=== PATIENT | female | born 1935 | race Caucasian/White ===

== ENCOUNTER → 2016-07-02 | Outpatient (CLI) | payer MEDICARE, BC ==
[~2016-07-02] MED LIST: AMIO100T4 PO; AMLO2.5T PO; ASPI81TA2 PO; BENZ-16 PO; CALC-139 PO; CYAN100099 PO; FERR-70 PO; FURO20TA4 PO; HYDR-3989 PO; LEVO88TA7 PO; LORA1TAB3 PO; MELA1TAB29 PO; POTA10TA14 PO; RANO500T3 PO; SERT50TA12 PO; SULF1TAB3 PO; [UNRECOGNIZED DRUG - CODE] PO
[2016-07-02 07:32] LABS: ANION GAP 10 MEQ/L (5-15); BUN/CREATININE RATIO 18 RATIO (6-26); CALCIUM 8.3 MG/DL (8.4-10.2); CHLORIDE 106 MEQ/L (98-107); CO2 - CARBON DIOXIDE 29 MEQ/L (22-30); CREATININE 0.8 MG/DL (0.7-1.2); GLOMERULAR FILTRATION RATE 69; GLUCOSE 89 MG/DL (65-110); POTASSIUM 3.8 MEQ/L (3.6-5); SODIUM 145 MEQ/L (134-144)
== END ==
LOC: LABNH.PM 01:33
PROVIDERS: ATTEND Family Medicine
DX: I10 Essential (primary) hypertension (principal)
CPT/HCPCS: 36415; 80048; P9604